=== PATIENT | female | born 1975 | race Caucasian/White ===

== ENCOUNTER 2019-01-23 12:54 | Emergency (ER) | payer OTHER ==
[2019-01-23 13:10] VITALS: BP 137/90
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
== END 2019-01-23 14:27 | disposition home or self-care (01) ==
LOC: ED 12:54
DX: R68.84 Jaw pain (principal); M54.2 Cervicalgia; Y04.0XXA Assault by unarmed brawl or fight, initial encounter; Y93.9 Activity, unspecified; Y92.9 Unspecified place or not applicable
CPT/HCPCS: 70450; 70486; 72125; 99283; 99285

== ENCOUNTER 2019-09-17 15:35 | Outpatient (CLI) | payer OTHER ==
--- NOTE | 2019-09-17 18:15 | Diagnostic Imaging Report ---
PATIENT MR#: [id number] PATIENT PATIENT NAME: MARIA TERESA RODNEY DATE OF : 1975 REFERRING PHYSICIAN: Shailesh Boothe EXAM DATE: 09/17/2019 ACCESSION NUMBER: [id number] EXAM DESCRIPTION: RT HIP 2VIEW COMPLETE CLINICAL HISTORY: RT HIP PAIN AFTER INJECTION LAST WEEK COMPARISON: No study for comparison is available at the time of interpretation. TECHNIQUE: DX right hip, 2 views Osseous structures: The osseous structures are normal with no evidence of fracture or dislocation. Th ere is no osseous lesion or periosteal reaction. Joint spaces: The bones are well aligned. No articular surface abnormality is noted. Soft tissues: There is normal appearance of the soft tissues with no radiopaque foreign body seen. IMPRESSION: Normal right hip radiographs. Read by: Dr. Jairon Sierra Transcribed by: Jairon Sierra Transcribed Date: 09/17/2019 6:14:51 PM Electronically signed by: Dr. Jairon Sierra Date signed: 09/17/2019 6:14:51 PM
== END 2019-09-17 16:00 ==
LOC: RAD 15:35
PROVIDERS: ATTEND Family Medicine
DX: M25.551 Pain in right hip (principal)
CPT/HCPCS: 73502